=== PATIENT | male | born 1975 | race Caucasian/White ===

== ENCOUNTER 2021-01-25 17:47 | Emergency (ER) | payer OTHER ==
[~2021-01-25] VITALS: Ht 167.6 cm; Wt 83.9 kg
== END 2021-01-25 20:20 | disposition home or self-care (01) ==
LOC: ER 17:47
DX: S83.094A Other dislocation of right patella, initial encounter (principal); S80.01XA Contusion of right knee, initial encounter; S76.111A Strain of right quadriceps muscle, fascia and tendon, initial encounter; M23.51 Chronic instability of knee, right knee; Y93.39 Activity, other involving climbing, rappelling and jumping off; Y93.68 Activity, volleyball (beach) (court); Y92.832 Beach as the place of occurrence of the external cause; Y99.8 Other external cause status